=== PATIENT | male | born 1955 | race Asian ===

== ENCOUNTER 2021-01-06 11:41 | Emergency (ER) | payer OTHER ==
[~2021-01-06] VITALS: Ht 162.6 cm; Wt 64.4 kg
[2021-01-06 12:16] VITALS: BP 161/94
--- NOTE | 2021-01-06 12:21 | NUR ---
PT AMBULATED BACK TO LOBBY AT THIS TIME
[2021-01-06] MEDS ORDERED: OXYM15SP72 NS (14:42)
--- NOTE | 2021-01-06 14:48 | NUR ---
Patient discharged with v/s stable. Written and verbal after care instructions given and explained. Patient alert, oriented and verbalized understanding of instructions. Ambulatory with steady gait. All questions addressed prior to discharge. ID band removed. Patient advised to follow up with PMD. Rx of Afrin given. Patient educated on indication of medication including possible reaction and side effects. Opportunity to ask questions provided and answered.
--- NOTE | 2021-01-06 14:50 | NUR ---
NO NURSING INTERVENTIONS PERFORMED
== END 2021-01-06 14:48 | disposition home or self-care (01) ==
LOC: MED 11:41
DX: R04.0 Epistaxis (principal)
CPT/HCPCS: 99282